=== PATIENT | male | born 1990 | race Two or more races ===

== ENCOUNTER 2020-07-29 13:07 | Inpatient (IN) | payer OTHER ==
[~2020-07-29] VITALS: Ht 167.6 cm; Wt 93.4 kg
[2020-07-29] MEDS ORDERED: ACETAMINOPHEN 325 MG TAB PO ONE (13:45)
[2020-07-29 16:06] LABS: Basophils # (auto) 0 10 ^3/uL (0-0.2); Basophils % (auto) 0.3 % (0.0-2.0); Eosinophils # (auto) 0 10 ^3/uL (0-0.8); Hematocrit 44.3 % (41.0-53.0); Hemoglobin 15.4 g/dL (13.5-17.5); Lymphocytes # (auto) 1.3 10 ^3/uL (0.4-5.4); Lymphocytes % (auto) 14.1 % (10.0-50.0); Mean Corpuscular Hgb Conc. 34.7 g/dL (32.0-36.0); Mean Corpuscular Volume 80.6 fL (80.0-100.0); Monocytes # (auto) 0.7 10 ^3/uL (0-1.3); Monocytes % (auto) 7.6 % (0.0-12.0); Nucleated Red Blood Cells % 0.2 %; Platelet Count (auto) 238 10^3/uL (140-450); Red Cell Distribution Width 13.2 % (11.8-14.3); White Blood Cell 8.9 10^3/uL (4.4-10.8)
[2020-07-29 16:20] LABS: Albumin 3.8 g/dL (3.4-5.0); Calcium 8.4 mg/dL (8.5-10.1); Potassium 3.2 mmol/L (3.5-5.1)
[2020-07-29 16:24] LABS: BUN/Creatinine Ratio 10.1; Bilirubin, Total 0.9 mg/dL (0.2-1.0); Total Protein 8.1 g/dL (6.4-8.2)
[2020-07-29] MEDS ORDERED: SODIUM CHLORIDE 0.9% 1,000 ML IV ONE (16:30)
[2020-07-29] MEDS ORDERED: ASCORBIC ACID 500 MG TAB PO ONE (17:00)
[2020-07-29] MEDS ORDERED: DOXYCYCLINE 100MG/250ML 250 ML IV ONE (17:00)
[2020-07-29] MEDS ORDERED: cefTRIAXone 1GM/50ML D5W 50 ML IV ONE (17:00)
[2020-07-29] MEDS ORDERED: POTASSIUM CHL 20 Meq TABLET PO ONE ×2 (17:30→18:15)
[2020-07-29] MEDS ORDERED: MORPHINE SULF INJ 2 MG/ML SYRINGE 1ML IV PRN (18:15)
[2020-07-29] MEDS ORDERED: NITROGLYCERIN 0.4 MG SL TAB SL PRN (18:15)
[2020-07-29] MEDS ORDERED: ACETAMINOPHEN 500 MG TAB PO PRN (18:15)
[2020-07-29 18:19] LABS: Magnesium 2.7 mg/dL (1.6-2.6)
[2020-07-29 18:32] LABS: CRP High Sensitivity 7.31 mg/dL (< 0.3)
[2020-07-29] MEDS ORDERED: BUDESONIDE (INHALATION) 180 MCG IH IN SCH (22:00)
[2020-07-29] MEDS ORDERED: ALBUTEROL SULF HFA 90MCG INH 200DOSE IN SCH (22:00)
[2020-07-30 00:48] LABS: Alcohol, Urine < 3.0 mg/dL (0-10); Amphetamine Screen, Urine NEGATIVE (NEGATIVE); Barbiturate Scree,Urine NEGATIVE (NEGATIVE); Benzodiazephine Screen, Urine NEGATIVE (NEGATIVE); Cannabinoid Screen, Urine NEGATIVE (NEGATIVE); Cocaine Screen, Urine NEGATIVE (NEGATIVE); Opiate Scree,Urine NEGATIVE (NEGATIVE); Phencyclidine Screen, Urine NEGATIVE (NEGATIVE)
[2020-07-30 01:00] LABS: Urine Bacteria FEW /hpf (None Seen); Urine Blood Negative /uL (Negative); Urine Specific Gravity 1.007 (1.001-1.035); Urine WBC 2 /hpf (0 - 3)
[2020-07-30 07:27] LABS: Basophils # (auto) 0 10 ^3/uL (0-0.2); Basophils % (auto) 0.3 % (0.0-2.0); Eosinophils # (auto) 0 10 ^3/uL (0-0.8); Eosinophils % (auto) 0.5 % (0.0-7.0); Hematocrit 41.7 % (41.0-53.0); Hemoglobin 14.1 g/dL (13.5-17.5); Lymphocytes # (auto) 1.5 10 ^3/uL (0.4-5.4); Lymphocytes % (auto) 26.2 % (10.0-50.0); Mean Corpuscular Hemoglobin 27.7 pg (28.0-32.0); Mean Corpuscular Hgb Conc. 33.8 g/dL (32.0-36.0); Monocytes # (auto) 0.7 10 ^3/uL (0-1.3); Monocytes % (auto) 11.6 % (0.0-12.0); Neutrophils # (auto) 3.5 10 ^3/uL (1.6-8.6); Neutrophils % (auto) 61.4 % (37.0-80.0); Nucleated Red Blood Cells % 0.1 %; Platelet Count (auto) 224 10^3/uL (140-450); Red Blood Cells 5.08 10^6/uL (4.5-5.90); Red Cell Distribution Width 13.3 % (11.8-14.3); White Blood Cell 5.7 10^3/uL (4.4-10.8)
[2020-07-30 07:58] LABS: Albumin 3.1 g/dL (3.4-5.0); Calcium 8.1 mg/dL (8.5-10.1); Potassium 3.4 mmol/L (3.5-5.1)
[2020-07-30 08:03] LABS: BUN/Creatinine Ratio 11.1; Bilirubin, Total 0.6 mg/dL (0.2-1.0); Total Protein 7.1 g/dL (6.4-8.2)
[2020-07-30] MEDS: ENOXAPARIN SOD 40 MG/0.4 ML SYRINGE SC SCH (09:02)
[2020-07-30] MEDS: ASCORBIC ACID 1,000 MG TAB PO SCH (09:03)
[2020-07-30] MEDS: DexAMETHasone SOD PHOS 10MG/1ML VIAL INJ IV SCH (09:03)
[2020-07-30] MEDS: ZINC SULFATE 220mg CAP or TAB PO SCH (09:03)
[2020-07-30] MEDS: CHOLECALCIFEROL (VITD3) 2,000 UNIT CAP PO SCH (09:03)
[2020-07-30] MEDS: DOXYCYCLINE 100MG/250ML 250 ML IV SCH ×2 (09:11→22:00)
[2020-07-30] MEDS ORDERED: IOHEXOL 350 MG/ML 100ML IJ ONE (11:05)
[2020-07-30] MEDS ORDERED: FUROSEMIDE 20 MG/2 ML VIAL IV ONE (12:30)
[2020-07-30] MEDS ORDERED: POTASSIUM CHL 20 Meq TABLET PO ONE (14:30)
[2020-07-31 09:15] LABS: Basophils # (auto) 0 10 ^3/uL (0-0.2); Basophils % (auto) 0.3 % (0.0-2.0); Eosinophils # (auto) 0 10 ^3/uL (0-0.8); Eosinophils % (auto) 0.3 % (0.0-7.0); Hematocrit 42.9 % (41.0-53.0); Hemoglobin 14.3 g/dL (13.5-17.5); Lymphocytes # (auto) 1.7 10 ^3/uL (0.4-5.4); Mean Corpuscular Hemoglobin 27.2 pg (28.0-32.0); Mean Corpuscular Hgb Conc. 33.2 g/dL (32.0-36.0); Mean Corpuscular Volume 81.8 fL (80.0-100.0); Monocytes # (auto) 0.9 10 ^3/uL (0-1.3); Monocytes % (auto) 13.8 % (0.0-12.0); Neutrophils # (auto) 4.1 10 ^3/uL (1.6-8.6); Neutrophils % (auto) 60.6 % (37.0-80.0); Nucleated Red Blood Cells % 0.1 %; Platelet Count (auto) 260 10^3/uL (140-450); Red Blood Cells 5.25 10^6/uL (4.5-5.90); Red Cell Distribution Width 13.2 % (11.8-14.3); White Blood Cell 6.8 10^3/uL (4.4-10.8)
[2020-07-31 09:31] LABS: Potassium 3.7 mmol/L (3.5-5.1)
[2020-07-31] MEDS: POTASSIUM CHL 20 Meq TABLET PO SCH (09:36)
[2020-07-31] MEDS: DOXYCYCLINE 100MG/250ML 250 ML IV SCH ×2 (09:36→23:15)
[2020-07-31] MEDS: DexAMETHasone SOD PHOS 10MG/1ML VIAL INJ IV SCH (09:36)
[2020-07-31] MEDS: ASCORBIC ACID 1,000 MG TAB PO SCH (09:36)
[2020-07-31] MEDS: ZINC SULFATE 220mg CAP or TAB PO SCH (09:36)
[2020-07-31] MEDS: CHOLECALCIFEROL (VITD3) 2,000 UNIT CAP PO SCH (09:36)
[2020-07-31] MEDS: ENOXAPARIN SOD 40 MG/0.4 ML SYRINGE SC SCH (09:36)
[2020-07-31 09:39] LABS: Albumin 3.2 g/dL (3.4-5.0); BUN/Creatinine Ratio 18.6; Bilirubin, Total 0.6 mg/dL (0.2-1.0); Calcium 8.8 mg/dL (8.5-10.1); Total Protein 7.2 g/dL (6.4-8.2)
[2020-07-31] MEDS ORDERED: FUROSEMIDE 20 MG/2 ML VIAL IV SCH (10:00)
[2020-07-31] MEDS: FUROSEMIDE 20 MG/2 ML VIAL IV SCH (10:00)
[2020-07-31 22:00] VITALS: BP 97/54
[2020-08-01 05:00] VITALS: BP 94/60
[2020-08-01 08:00] VITALS: BP 112/68
[2020-08-01 08:49] VITALS: BP 112/68
[2020-08-01] MEDS: FUROSEMIDE 20 MG/2 ML VIAL IV SCH (09:16)
[2020-08-01] MEDS: ZINC SULFATE 220mg CAP or TAB PO SCH (09:17)
[2020-08-01] MEDS: DexAMETHasone SOD PHOS 10MG/1ML VIAL INJ IV SCH (09:17)
[2020-08-01] MEDS: DOXYCYCLINE 100MG/250ML 250 ML IV SCH ×2 (09:17→22:30)
[2020-08-01] MEDS: POTASSIUM CHL 20 Meq TABLET PO SCH (09:17)
[2020-08-01] MEDS: ENOXAPARIN SOD 40 MG/0.4 ML SYRINGE SC SCH (09:18)
[2020-08-01] MEDS: ASCORBIC ACID 1,000 MG TAB PO SCH (10:00)
[2020-08-01] MEDS: CHOLECALCIFEROL (VITD3) 2,000 UNIT CAP PO SCH (10:00)
[2020-08-01 12:45] VITALS: BP 111/66
[2020-08-01 17:52] VITALS: BP 111/75
[2020-08-01 22:00] VITALS: BP 110/70
[2020-08-02 05:00] VITALS: BP 97/60
[2020-08-02 09:00] VITALS: BP 107/61
[2020-08-02] MEDS: DOXYCYCLINE 100MG/250ML 250 ML IV SCH ×2 (09:15→21:29)
[2020-08-02] MEDS: POTASSIUM CHL 20 Meq TABLET PO SCH (09:16)
[2020-08-02] MEDS: FUROSEMIDE 20 MG/2 ML VIAL IV SCH (09:16)
[2020-08-02] MEDS: ZINC SULFATE 220mg CAP or TAB PO SCH (09:16)
[2020-08-02] MEDS: DexAMETHasone SOD PHOS 10MG/1ML VIAL INJ IV SCH (09:16)
[2020-08-02] MEDS: ASCORBIC ACID 1,000 MG TAB PO SCH (09:17)
[2020-08-02] MEDS: ENOXAPARIN SOD 40 MG/0.4 ML SYRINGE SC SCH (09:17)
[2020-08-02] MEDS: CHOLECALCIFEROL (VITD3) 2,000 UNIT CAP PO SCH (09:17)
[2020-08-02 13:00] VITALS: BP 103/65
[2020-08-02 16:28] VITALS: BP 109/66
[2020-08-02 22:00] VITALS: BP 110/70
[2020-08-03 05:00] VITALS: BP 97/51
[2020-08-03 08:00] VITALS: BP 100/59
[2020-08-03 08:05] VITALS: BP 100/59
[2020-08-03] MEDS: ASCORBIC ACID 1,000 MG TAB PO SCH (10:00)
[2020-08-03] MEDS: CHOLECALCIFEROL (VITD3) 2,000 UNIT CAP PO SCH (10:00)
[2020-08-03] MEDS: ZINC SULFATE 220mg CAP or TAB PO SCH (10:07)
[2020-08-03] MEDS: POTASSIUM CHL 20 Meq TABLET PO SCH (10:07)
[2020-08-03] MEDS: DexAMETHasone SOD PHOS 10MG/1ML VIAL INJ IV SCH (10:08)
[2020-08-03] MEDS: ENOXAPARIN SOD 40 MG/0.4 ML SYRINGE SC SCH (10:09)
[2020-08-03] MEDS: FUROSEMIDE 20 MG/2 ML VIAL IV SCH (10:09)
[2020-08-03] MEDS: DOXYCYCLINE 100MG/250ML 250 ML IV SCH ×2 (10:09→21:36)
[2020-08-03 12:00] VITALS: BP 106/74
[2020-08-03 17:00] VITALS: BP 97/49
[2020-08-03 22:00] VITALS: BP 114/59
[2020-08-04 05:09] VITALS: BP 105/57
[2020-08-04 09:00] VITALS: BP 97/64
[2020-08-04] MEDS ORDERED: ALBUAER3 IN (09:41)
[2020-08-04] MEDS ORDERED: CHOL1CAP47 PO (09:41)
[2020-08-04] MEDS ORDERED: ASCO10003 PO (09:41)
[2020-08-04] MEDS ORDERED: METH4PAK PO (09:41)
[2020-08-04] MEDS ORDERED: ZINC220T6 PO (09:41)
[2020-08-04] MEDS: ASCORBIC ACID 1,000 MG TAB PO SCH (10:00)
[2020-08-04] MEDS: CHOLECALCIFEROL (VITD3) 2,000 UNIT CAP PO SCH (10:00)
[2020-08-04] MEDS: DexAMETHasone SOD PHOS 10MG/1ML VIAL INJ IV SCH (10:00)
[2020-08-04] MEDS: ZINC SULFATE 220mg CAP or TAB PO SCH (10:00)
[2020-08-04] MEDS: POTASSIUM CHL 20 Meq TABLET PO SCH (10:00)
[2020-08-04] MEDS: ENOXAPARIN SOD 40 MG/0.4 ML SYRINGE SC SCH (10:00)
[2020-08-04] MEDS: FUROSEMIDE 20 MG/2 ML VIAL IV SCH (10:00)
[2020-08-04 10:06] VITALS: BP 97/64
== END 2020-08-04 12:36 | disposition home or self-care (01) | DRG 193 ==
LOC: ER 13:07 → TELE 13:08 → TELE-WESTW 07-31 13:46
PROVIDERS: ADMIT Nurse Practitioner Acute Care; ATTEND Internal Medicine
DX: J18.9 Pneumonia, unspecified organism (principal); J96.01 Acute respiratory failure with hypoxia; E87.1 Hypo-osmolality and hyponatremia; E86.0 Dehydration; Z20.828 Contact with and (suspected) exposure to other viral communicable diseases; E87.6 Hypokalemia; E66.3 Overweight; Z68.33 Body mass index [BMI] 33.0-33.9, adult
CPT/HCPCS: 36415; 71045; 71275; 80053; 80307; 81001; 82728; 83605; 83615; 83735; 84443; 85025; 85379; 86141; 87040; 87426; 87804; 97163; G0378; J0696; J1100; J3490